=== PATIENT | female | born 1960 | race Caucasian/White ===

== ENCOUNTER → 2023-07-09 09:33 | Outpatient (REF) | payer OTHER, SELFPAY | LOC: HWRAD 09:33 | PROVIDERS: ATTENDING PHYSICIAN Nuclear Medicine Nuclear Cardiology; FAMILY PHYSICIAN Physician Assistant Medical; REFERRING PHYSICIAN Nurse Practitioner Adult Health | DX: I25.10 Atherosclerotic heart disease of native coronary artery without angina pectoris (principal); I70.0 Atherosclerosis of aorta; J44.9 Chronic obstructive pulmonary disease, unspecified | CPT/HCPCS: 71046; 74174; Q9967 ==

== ENCOUNTER → 2023-10-07 12:11 | Outpatient (REF) | payer OTHER, SELFPAY | LOC: HWWDC 12:11 | PROVIDERS: ATTENDING PHYSICIAN Physician Assistant Medical | DX: Z12.31 Encounter for screening mammogram for malignant neoplasm of breast (principal) | CPT/HCPCS: 77063; 77067 ==

== ENCOUNTER → 2023-10-14 09:15 | Outpatient (REF) | payer OTHER, SELFPAY | LOC: HWRAD 09:15 | PROVIDERS: ATTENDING PHYSICIAN Physician Assistant Medical | DX: Z78.0 Asymptomatic menopausal state (principal) | CPT/HCPCS: 77080 ==

== ENCOUNTER → 2024-01-25 13:03 | Outpatient (REF) | payer OTHER, SELFPAY | LOC: RCS 13:03 | PROVIDERS: ATTENDING PHYSICIAN Family Medicine; REFERRING PHYSICIAN Nuclear Medicine Nuclear Cardiology | DX: R00.2 Palpitations (principal) | CPT/HCPCS: 93225; 93226 ==

== ENCOUNTER → 2024-07-26 14:10 | Outpatient (REF) | payer OTHER, SELFPAY | LOC: HWRAD 14:10 | PROVIDERS: ATTENDING PHYSICIAN Internal Medicine Gastroenterology; FAMILY PHYSICIAN Physician Assistant Medical | DX: K70.30 Alcoholic cirrhosis of liver without ascites (principal); F17.200 Nicotine dependence, unspecified, uncomplicated | CPT/HCPCS: 71046; 76700 ==

== ENCOUNTER → 2024-10-11 13:14 | Outpatient (REF) | payer OTHER, SELFPAY | LOC: HWWDC 13:14 | PROVIDERS: ATTENDING PHYSICIAN Physician Assistant Medical | DX: Z12.31 Encounter for screening mammogram for malignant neoplasm of breast (principal) | CPT/HCPCS: 77063; 77067 ==

== ENCOUNTER → 2024-11-09 12:53 | Outpatient (REF) | payer OTHER, SELFPAY | LOC: HWRCS 12:53 | PROVIDERS: ATTENDING PHYSICIAN Nuclear Medicine Nuclear Cardiology; FAMILY PHYSICIAN Physician Assistant Medical | DX: I25.10 Atherosclerotic heart disease of native coronary artery without angina pectoris (principal); R06.02 Shortness of breath; R00.2 Palpitations | CPT/HCPCS: 93306 ==

== ENCOUNTER → 2024-11-30 12:48 | Outpatient (REF) | payer OTHER, SELFPAY | LOC: HWRAD 12:48 | PROVIDERS: ATTENDING PHYSICIAN Internal Medicine Critical Care Medicine; FAMILY PHYSICIAN Physician Assistant Medical | DX: F17.210 Nicotine dependence, cigarettes, uncomplicated (principal) | CPT/HCPCS: 71271 ==

== ENCOUNTER 2025-01-05 06:31 | Day surgery (SDC) | payer OTHER, SELFPAY ==
[2025-01-05] VITALS (11 sets, daily range): BP systolic 80–161; BP diastolic 42–118; BMI 24.3
--- NOTE | 2025-01-05 10:59 | W.SUR.PREOP ---
Pre-Operative Surgical Note
-
I have examined this patient prior to the performance of the scheduled procedure.
The patient's condition is unchanged from the time of the current History and
Physical and the patient is able to undergo the scheduled procedure.
--- NOTE | 2025-01-05 11:00 | HP.FOC2 ---
Focused History & Physical
Chief Complaint
HPI:
Chief Complaint: Biliary colic, GERD, fatty liver disease
HPI / Indication for Planned Procedure: This is a 64-year-old female with longstanding GERD, fatty liver disease on imaging and postprandial right upper quadrant pain consistent with biliary colic. Will plan for a laparoscopic cholecystectomy,
liver biopsy and EGD
Relevant Past Medical History: Negative
Relevant Social History: Negative
Relevant Family History: Negative
Relevant Past Surgical History: Negative
Review of Systems
Review of Pertinent Systems: All Systems Negative
Medication
See Medication form for detailed medications: Yes
Medication List (including Herbals & OTC):
alprazolam 0.5 mg tablet 0.25 mg PO BID 03/26/18
Magnenesium/Taurine 1 tab PO DAILY 01/03/25
acetylcysteine 600 mg capsule (NAC) 600 mg PO PRN PRN Mucous 01/03/25
albuterol sulfate 90 mcg/actuation aerosol inhaler 2 puff inhalation DAILY 01/03/25
alpha lipoic acid 600 mg capsule 600 mg PO DAILY 01/03/25
bisacodyl 5 mg tablet,delayed release (Dulcolax (bisacodyl)) 5 mg PO PRN PRN Constipation 01/03/25
cholecalciferol (vitamin D3) 50 mcg (2,000 unit) capsule (Vitamin D3) 50 mcg PO DAILY 01/03/25
gmphabm-lwhfurse-xbmyxhoipu 500 mg PO DAILY 01/03/25
coQ10 (ubiquinol) 100 mg capsule 100 mg PO PRN PRN Heart Health 01/03/25
cyanocobalamin (vitamin B-12) 1,000 mcg tablet (Vitamin B-12) 1,000 mcg PO PRN PRN fatigue 01/03/25
famotidine 10 mg tablet 10 mg PO PRN PRN Heartburn 01/03/25
ibuprofen 200 mg tablet 400 mg PO Q6H PRN pain 01/03/25
multivitamin 1 tab PO DAILY 01/03/25
omeprazole 20 mg capsule,delayed release 20 mg PO PRN PRN Severe Heartburn 01/03/25
oxymetazoline 0.05 % nasal mist (Afrin (oxymetazoline)) 2 spray intranasal Q12H 01/03/25
vitamin A 3,000 mcg (10,000 unit) capsule 3,000 mcg PO PRN PRN 'poor Vision' 01/03/25
vitamin E 268 mg (400 unit) capsule 268 mg PO PRN PRN liver health 01/03/25
vitamin K2 100 mcg capsule 100 mcg PO DAILY 01/03/25
Medications Reviewed: Yes
Allergies and Reactions
Patient has Allergies: Yes
Noted Allergies and Reactions:
Allergy/AdvReac Type Severity Reaction Status Date / Time
azithromycin (From Zithromax Allergy Anaphylaxis, Verified 01/05/25 10:54
Z-Bahman) hives
lidocaine Allergy Bradycardia Verified 01/05/25 10:54
w/ dental
extraction
Quinolones Allergy tachy, Verified 01/05/25 10:54
sweating
clindamycin (From ClindaMax) AdvReac c diff Verified 01/05/25 10:54
codeine AdvReac tachycardia, Verified 01/05/25 10:54
shakes,
dizziness
Tetracyclines AdvReac tachycardia Verified 01/05/25 10:54
Pertinent Physical Exam
All Other Systems: Negative
Head/Neck: Normal
Diagnosis / Assessment
This is a 64-year-old female with longstanding GERD, fatty liver disease on imaging and postprandial right upper quadrant pain consistent with biliary colic.
Plan / Procedure
Will plan for a laparoscopic cholecystectomy, liver biopsy and EGD
Anesthesia/Sedation to be done by Anesthesia Provider: Yes
[2025-01-05] MEDS: TYLENOL 1000 MG PO (11:03)
[2025-01-05] MEDS: NORMOSOL-R/PLASMALYTE-A 1000 IV (11:03)
--- NOTE | 2025-01-05 13:42 | W.IMMPOSTOP ---
Surgical Immed Post Op Note
-
Primary Surgeon: Mina Cotton MD
Assisting Surgeon: None
Pre-op Diagnosis: Biliary colic, fatty liver disease, GERD
Post-op Diagnosis: Biliary colic, fatty liver disease, GERD, gastritis
Procedure Performed:
1. Laparoscopic cholecystectomy with cholangiogram
2. Liver biopsy
3. Antral biopsies
Anesthesia Type: General
Specimen / Cultures:
1. Gallbladder and contents
2. Liver biopsy
3. Antral biopsies for H. pylori and path
Estimated Blood Loss: 7 cc
Complications: None
Operative Findings: Fairly normal-appearing gallbladder, mild adhesiolysis. Critical view of safety obtained prior to a cholangiogram which demonstrated normal biliary anatomy and no filling defects. Fatty liver disease noted, instruments sales representative
sample taken from segment 4. EGD performed. The esophagus, proximal stomach and duodenum all appeared normal. The antrum however was notable for some hemorrhagic gastritis as well as some linear streaking towards the pylorus concerning for
possible GAVE. Biopsies taken for path and to rule out H. pylori.
--- NOTE | 2025-01-05 13:48 | OR.RPT ---
Operative Report
Operative Report
Patient Name: Fatuma Davis
: 1960
Date of Operation: 01/05/2025
Pre-op Diagnosis: Biliary colic, fatty liver disease, GERD
Post-op Diagnosis: Biliary colic, fatty liver disease, GERD, gastritis
Procedure Performed:
1. Laparoscopic cholecystectomy with cholangiogram
2. Liver biopsy
3. Antral biopsies
Primary Surgeon: Mina Cotton MD
Assisting Surgeon: ASHWIN Lizama
Anesthesia Type: General
Specimen / Cultures:
1. Gallbladder and contents
2. Liver biopsy
3. Antral biopsies for H. pylori and path
Estimated Blood Loss: 7 cc
HPI/Surgical Indications:
This is a 64-year-old female who present to my office with postprandial abdominal pain concerning for biliary colic. Imaging workup also concerning for fatty liver disease. She also was noted to have longstanding reflux only partially controlled
with PPIs and has not had an endoscopy in some time. After appropriate counseling and discussion of risks/Benefits/Alternatives, and the patient agreed to proceed with surgery.
Operative Findings: Fairly normal-appearing gallbladder, mild adhesiolysis. Critical view of safety obtained prior to a cholangiogram which demonstrated normal biliary anatomy and no filling defects. Fatty liver disease noted, senior account representative
sample taken from segment 4. EGD performed. The esophagus, proximal stomach and duodenum all appeared normal. The antrum however was notable for some hemorrhagic gastritis as well as some linear streaking towards the pylorus concerning for
possible GAVE. Biopsies taken for path and to rule out H. pylori.
Procedure Description:
The patient was brought to the Operating Room and placed in the supine position with one arm tucked. Following uneventful induction of general endotracheal anesthesia, an orogastric tube was placed. The abdomen was prepped and draped in the usual
sterile fashion. A timeout was performed confirming the procedure, consent, and that IV antibiotics were infused and sequential compression devices were confirmed to be on. The abdomen was entered using an infraumbilical open Daiana technique with
a 12 mm balloon-tipped trocar. Pneumoperitoneum to 12 mmHg pressure was obtained without difficulty and we confirmed that no injury had occurred during our entry. The patient was positioned in reverse Trendelenberg and rotated with the right side
up slightly. Three (3) 5mm trocars were then placed along the right subcostal margin. The gallbladder was fairly normal though there was some adhesions on the anterior surface which were lysed. A locking grasping forceps was placed on the fundus
of the gallbladder where it was then retracted cephalad and to the right. Using appropriate grasping instruments, the peritoneum overlying the triangle of Calot was incised and extended superiorly on both the anterior and posterior gallbladder
read. The infundibulum was dissected off the cystic plate. The cystic triangle was dissected until a critical view of safety was achieved. The cystic artery was medialized, dissected and controlled with 2 proximal clips and 1 distal. The cystic
duct/gallbladder junction in turn was identified, dissected circumferentially and a clip was placed. A ductotomy was made and a cholangiocatheter on an Luciano clamp was inserted into the cystic duct. A C-arm was draped and brought into the field. An
intra-operative cholangiogram was performed and was noted to have:
No filling defects in the biliary tree
No significant biliary dilation
Brisk flow of contrast into the duodenum
Normal biliary anatomy
The catheter was then removed and the cystic duct was controlled with two clips. After ensuring both the artery and duct were divided, the gallbladder was freed from the liver using electrocautery. There was no spillage of bile or stones. The
gallbladder bed was inspected and excellent hemostasis was obtained. The gallbladder was extracted through the 12 mm trocar site using an endocatch bag. Given her history of fatty liver disease a senior account representative sample from segment 4 was taken with
sharp dissection. The biopsy site was then cauterized. The abdomen was again irrigated and excellent hemostasis was assured. All remaining trocars were then removed and the pneumoperitoneum was evacuated. The 12 mm trocar site was closed using 0
PDS suture. All trocar sites were closed at the skin level using 4-0 Monocryl followed by Dermabond. While my pharmacy affairs assistant was closing the skin, I performed the EGD. The esophagus was intubated and unremarkable. The proximal stomach and body were
also unremarkable, and no hiatal hernia was noted on retroflexion. There was however hemorrhagic gastritis from the incisura to the pylorus (i.e. the antrum of the stomach) with some linear streaking concerning for possible GAVE. Veneer Repairer Machine
biopsies were taken for path and to rule out H. pylori. The duodenum was also intubated up until D2. The ampulla was visualized. The rest of the duodenum was normal. The scope was removed after evacuating the stomach. Overall, the patient
tolerated the procedures well and was taken to the Recovery Room postoperatively in stable condition.
I was the attending physician and performed the procedure with assistance of the PA above. The assistance of ASHWIN Lizama was required due to the complexity of the procedure. During the procedure Barb assisted with retraction, resection, port
placement and closure of the wound. I was present for all portions of the case.
Mina Cotton MD
[2025-01-05] MEDS: ROXICODONE 5 MG PO (15:05)
== END 2025-01-05 15:27 | disposition home or self-care (01) ==
LOC: SDS 06:31
PROVIDERS: ATTENDING PHYSICIAN Surgery
DX: K80.50 Calculus of bile duct without cholangitis or cholecystitis without obstruction (principal); K29.71 Gastritis, unspecified, with bleeding; K76.0 Fatty (change of) liver, not elsewhere classified; K21.9 Gastro-esophageal reflux disease without esophagitis
CPT/HCPCS: 47563; 74300; 76000; 88304; 88305; 88307; 88313; 88342; A4300; J1335

== ENCOUNTER → 2025-04-28 12:31 | Outpatient (REF) | payer OTHER, SELFPAY | LOC: RAD 12:31 | PROVIDERS: ATTENDING PHYSICIAN Otolaryngology; FAMILY PHYSICIAN Physician Assistant Medical | DX: D23.39 Other benign neoplasm of skin of other parts of face (principal); J34.2 Deviated nasal septum; J01.10 Acute frontal sinusitis, unspecified | CPT/HCPCS: 70220 ==

== ENCOUNTER → 2025-05-29 12:24 | Outpatient (REF) | payer OTHER, SELFPAY | LOC: HWRAD 12:24 | PROVIDERS: ATTENDING PHYSICIAN Physician Assistant Medical | DX: R22.9 Localized swelling, mass and lump, unspecified (principal) | CPT/HCPCS: 70260; 76536 ==